=== PATIENT | female | born 1950 | race Caucasian/White ===

== ENCOUNTER 2021-09-30 01:25 | Day surgery (SDC) | payer BC, MEDICARE, SELFPAY ==
--- NOTE | 2021-09-20 11:02 | PC.NURSE ---
Report to the Outpatient Waiting Room, entrance under the green pavilion located off [facility], at time _0900 on date _09/30/21 . OR Time: __1100 . - You and your visitor will be asked a series of questions to screen for COVID 19 for your protection. - A mask is required within the hospital. Preoperative COVID Testing Requirements: No COVID Test needed if: (proof is required; if not received patient will have Rapid Test prior to entry) - Patient has received COVID Vaccine at least 14 days prior to procedure date or - Patient has positive COVID test result within last 90 days of surgery date. COVID Test needed if above criteria is not met If not COVID vaccinated a COVID test must be conducted within 72 hours of surgery and patient is asked to isolate self from time of testing until procedure. You will go to the [employer] Testing Site for your COVID testing. The [facility] is located at the corner of [address] from [facility]. You will only be called if COVID results are positive and your surgeon may reschedule your elective surgery date. Patients may have clear liquids (water, carbonated beverages, clear teas, apple juice) until 3 hours prior to surgery with a maximum of 20 ounces. - No food from midnight until time of surgery - Infants may have breast milk until 4 hours before surgery, formula 6 hours prior to surgery. - Children will be allowed to drink immediately following surgery. If applicable, please bring a bottle or sippy cup to assist with drinking. Juice, water, soda, and popsicles are readily available. For infants on formula, please bring formula the day of surgery. Pacifiers are allowed. Take the following medications with a SIP of water the morning of surgery: __NONE Medications to discontinue per physician ____MULTI VITAMIN 3 DAYS PRE OP Date to take last dose___09/26/21 Please no make-up, nail [place], hairspray, perfume, deodorant, or body powder the day of surgery. No jewelry (including any body piercings) or valuables the day of surgery, leave them at home. Please take a shower or bath the night before, or the morning of, surgery with an antibacterial soap. Wear comfortable, loose fitting clothing. Children are encouraged to wear pajamas. - Jewelry must be removed prior to entering the operating room. Rings and piercings that are not removed may be cut off. - The hospital will not accept responsibility for valuables. - Please leave all valuables, including medications, at home the day of surgery. If you are going home after surgery, a licensed wood pile driver operator must drive you home. - NO public transportation without another adult. - We recommend that an adult stay with you for 24 hours following discharge. - We also recommend that you do not drive, make important decision, drink alcoholic beverages, or take any drugs that were not prescribed by your health care provider for at least 24 hours after your discharge time. For Pediatric surgeries, we recommend two adults accompany the child home (only one inside the building at this time). One visitor will be allowed to accompany the patient into the hospital. Patients visitor will be instructed to remain with patient at all times or leave the building. We will allow the visitor to come back to the postoperative area when patient is ready. Follow any additional instructions given to you from your surgeon. Telephone instructions given to ___PATIENT and asked if any additional questions and then verbalized understanding. Patient advised to call surgeon office or pre surgery nurse liaison [phone] if any additional questions.
[2021-09-20 11:10] VITALS: BMI 32.3
--- NOTE | 2021-09-30 08:21 | WPDANESEPPF ---
Anes - Initial Pre Proc Eval Procedure: Operation Date: 09/30/21 10:00 Proposed Procedures p Hysteroscopy Dilation and Curettage - Yady Muhammad MD <Mandeep Alaniz MD - Last Filed: 10/01/21 15:25> Date/Time: 09/30/21 08:21 <Mandeep Alaniz MD - Last Filed: 10/01/21 15:25> Surgeon: Yady Muhammad MD <Mandeep Alaniz MD - Last Filed: 10/01/21 15:25> Pre Op Diagnosis: post menopausal bleeding <Mandeep Alaniz MD - Last Filed: 10/01/21 15:25> Patient Data Age: 71 Gender: F Height: 1.68 m Weight: 90.75 kg <Mandeep Alaniz MD - Last Filed: 10/01/21 15:25> Allergies Allergy/AdvReac Type Severity Reaction Status Date / Time No Known Allergies Allergy Unverified 09/30/21 08:37 <Mandeep Alaniz MD - Last Filed: 10/01/21 15:25> Home Medications Medication Instructions Recorded Confirmed Type multivitamin [Multi-Vitamin] 1 tablet PO DAILY 09/20/21 09/30/21 History <Mandeep Alaniz MD - Last Filed: 10/01/21 15:25> Patient hx anesthesia problems: none <Nicholas Nieves DO - Last Filed: 09/30/21 11:54> Family hx anesthesia problems: none <Nicholas Nieves DO - Last Filed: 09/30/21 11:54> Results Review: All pre-operative results and documents have been reviewed as part of the pre-operative evaluation. <Mandeep Alaniz MD - Last Filed: 10/01/21 15:25> PMFSH Past Medical History Medical History: Medical History (Updated 09/30/21 @ 08:22 by Mandeep Alaniz MD) Arthritis Cataract fragments in eye following surgery Insomnia Obesity <Mandeep Alaniz MD - Last Filed: 10/01/21 15:25> Surgical History Surgical History: Surgical History History of tubal ligation S/P laparoscopic sleeve gastrectomy <Mandeep Alaniz MD - Last Filed: 10/01/21 15:25> Family History Family History: Family History Other Cerebrovascular accident Diabetes mellitus Hypertension Thyroid disease <Mandeep Alaniz MD - Last Filed: 10/01/21 15:25> Social History Social History: Social History Smoking packs per day: 2 Smoking cigarettes per day: 40.0 Years smoked: 15 Smoking pack-years: 30.00 Smoking status: Former smoker Tobacco type: cigarettes Smoking end date: 06/15/91 Alcohol intake: current Drinks per week: 2 Alcohol use details: socially Substance use: never Substance use type: does not use Living arrangements: with family Gender identity (if verbalized by the patient): Female Spiritual care concerns: No <Mandeep Alaniz MD - Last Filed: 10/01/21 15:25> Anes - Eval Final PreProcedure Day of Procedure 09/30/21 08:21 <Mandeep Alaniz MD - Last Filed: 10/01/21 15:25> Patient weight: obese <Mandeep Alaniz MD - Last Filed: 10/01/21 15:25> Heart: regular rate and rhythm <Mandeep Alaniz MD - Last Filed: 10/01/21 15:25> Lungs: clear to auscultation and normal air movement <Mandeep Alaniz MD - Last Filed: 10/01/21 15:25> Airway: Mallampati scale class II <Mandeep Alanzi MD - Last Filed: 10/01/21 15:25> Neurological: alert and oriented <Mandeep Alaniz MD - Last Filed: 10/01/21 15:25> Last oral intake: >/= 8 hours <Mandeep Alaniz MD - Last Filed: 10/01/21 15:25> ASA classification: II <Mandeep Alaniz MD - Last Filed: 10/01/21 15:25> Emergent: no <Mandeep Alaniz MD - Last Filed: 10/01/21 15:25> Anesthetic plan: proceed <Mandeep Alaniz MD - Last Filed: 10/01/21 15:25> Anesthesia type and monitoring: general GIVS <Mandeep Alaniz MD - Last Filed: 10/01/21 15:25> Results Review: All pre-operative results and documents have been reviewed as part of the pre-operative evaluation. <Mandeep Oseguera
[2021-09-30 08:24] VITALS: BP 150/72; PULSE 59; RESP 20; TEMP 36.3; O2SAT 97
[2021-09-30] MEDS: LACTATED RINGERS 1,000 ML 30 ML IV CONT (08:45)
--- NOTE | 2021-09-30 09:46 | SUR.PREOP ---
0940-PT AND DAUGHTER AWARE SURGEON DELAYS SELF WITH PRIOR CASE ~ 1 1/2 HOURS. CALL LIGHT W/IN REACH AND NEEDS MET AT THIS TIME.
--- NOTE | 2021-09-30 10:45 | P.HP_ITS ---
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 She reports this was her 3rd episode of PMB since 57yo when she went through menopause-- first one was shortly after becoming menopausal, second one was after intercourse; but has not been sexually active in >1yr due to vaginal pain/dryness/irritation. She does report a h/o abnormal paps/ AUB-- reports she should have had a hysterectomy but didn't have insurance and couldn't have one. Her PCP examined her last month and did note vaginal bleeding; US and pap were collected. Pap is still pending? The US showed slightly thickened endometrium of 5.7mm with endometrial fluid. The bleeding lasted a few days and was red, associated with cramping. She desires to proceed with hysteroscopy, D&C. Chief Complaint: postmenopausal bleeding Review of Systems Review of Systems: All systems reviewed & are unremarkable except as noted in HPI and below (HPI) [facility] Past Medical History Medical History (Updated 09/30/21 @ 08:22 by Mandeep Alaniz MD) Arthritis Cataract fragments in eye following surgery Insomnia Obesity Surgical History Surgical History History of tubal ligation S/P laparoscopic sleeve gastrectomy Family History Family History Other Cerebrovascular accident Diabetes mellitus Hypertension Thyroid disease Social History Social History Smoking packs per day: 2 Smoking cigarettes per day: 40.0 Years smoked: 15 Smoking pack-years: 30.00 Smoking status: Former smoker Tobacco type: cigarettes Smoking end date: 06/15/91 Alcohol intake: current Drinks per week: 2 Alcohol use details: socially Substance use: never Substance use type: does not use Living arrangements: with family Gender identity (if verbalized by the patient): Female Spiritual care concerns: No Meds Home Medications and Allergies Home Medications Medication Instructions Recorded Confirmed Type multivitamin [Multi-Vitamin] 1 tablet PO DAILY 09/20/21 09/30/21 History Allergies Allergy/AdvReac Type Severity Reaction Status Date / Time No Known Allergies Allergy Unverified 09/30/21 08:37 Exam Const: General: cooperative, comfortable and no acute distress Resp: Effort & Inspection: normal respiratory effort Cardio: Rate: regular rate GI: GI Palp: No abdominal tenderness and Yes Soft to palpation : Other: deferred to OR Skin: General skin exam: normal color Neuro: General: patient oriented x3 Psych: Appearance: grossly normal Affect: normal affect Attitude: cooperative Assessment and Plan Assessment and plan (1) Postmenopausal bleeding: Code(s): N95.0 - Postmenopausal bleeding Status: Acute Additional Plan - She has had multiple episodes of PMB + slightly thickened lining noted on US - Proceed with hysteroscopy with dilation and curettage - risks and benefits explained in detail
--- NOTE | 2021-09-30 10:45 | WPDHPUPDATE1 ---
History and Physical Update Update Date/Time: 09/30/21 10:45 History and Physical has been reviewed, including an updated exam of the patient. There are NO changes in the patient's condition. Risks, benefits, and alternatives have been discussed and questions answered. Patient agrees to proceed with procedure.
[2021-09-30 13:05] VITALS: BP 111/44; PULSE 57; RESP 14; TEMP 36.2; O2SAT 98
--- NOTE | 2021-09-30 13:18 | W.PM.PROC2 ---
Procedure Note - Detailed Date of Procedure 09/30/21 Pre-op Diagnosis post menopausal bleeding Post-op Diagnosis Same Procedure Performed Hysteroscopy, dilation and curettage, with polypectomy Surgeon Yady Muhammad MD Anesthesia General Findings Uterus 6cm; normal cervix, normal bilateral tubal ostia visualized; endometrial polyp arising from posterior wall removed. Good hemostasis at end of case. Description of Procedure Rosio was taken operating room where she was placed under general anesthesia without complications. She was then prepped and draped in usual sterile fashion the dorsal lithotomy position with her legs in low Eliud stirrups. A time-out was performed and no preoperative antibiotics were indicated. A bivalve speculum was placed within the vagina with the cervix is identified. The anterior lip the cervix was grasped with single-tooth tenaculum. The uterus was sounded with the above findings. The cervix was then serially dilated to allow for the hysteroscope. The hysteroscope was advanced into the uterine cavity with the above findings. The hysteroscope was removed and a curettage was performed with a decent amount of tissue removed. The hysteroscope was once again advanced in the uterus to verify that the polyp had been removed in full, but it was identified still attached to the posterior uterine wall. Using alligator hysteroscopic clamps the polyp was partially removed. It is polyp forceps were then placed within the uterine cavity and the polyp was palpated and removed in whole. Another gentle curettage was performed and a good uterine cry was then noted. Good hemostasis noted. All instruments were removed from the vagina. Sponge, lap, instrument counts were correct at the end of the procedure. Patient was awoken from general anesthesia and taken recovery in a stable condition with plans of same-day discharge home. Estimated Blood Loss 5 Pathology Yes Complications No immediate complications Condition Stable Disposition Same day
[2021-09-30 13:35] VITALS: BP 118/45; PULSE 53; O2SAT 97
[2021-09-30 14:00] VITALS: BP 114/61; PULSE 60
== END 2021-09-30 14:10 | disposition home or self-care (01) ==
PROVIDERS: PCP Family Medicine; Visit Provider Obstetrics & Gynecology
PROC: 0U5B8ZZ Destruction of Endometrium, Via Natural or Artificial Opening Endoscopic (ICD-10-PCS; CPT 58563; principal; 2021-09-30 10:00)
DX: N95.0 Postmenopausal bleeding (principal); N84.0 Polyp of corpus uteri; Z87.891 Personal history of nicotine dependence
CPT/HCPCS: 58558; 88305; A9270; J1100; J2405; J2704; J3010; J7120

== ENCOUNTER 2023-10-29 10:41 | Outpatient (CLI) | payer MEDICARE, SELFPAY ==
[2023-10-29 19:03] LABS: Hematocrit 47.9 % (37.0-47.0); Hemoglobin 14.8 g/dL (12.0-15.0); Mean Corpuscular HGB Conc 30.9 g/dl (32-36); Mean Corpuscular Volume 90.7 fl (80-100); Mean Platelet Volume 11.1 fl (7.4-10.4); Platelet Count Result 353 k/mm3 (150-375); Red Blood Count 5.28 M/mm3 (4.2-5.4); Red Cell Distribution Width 14.1 % (11.5-14.5)
[2023-10-29 19:18] LABS: Alanine Aminotransferase 12 U/L (6-35); Albumin Level 4.4 g/dL (3.5-5.1); Alkaline Phosphatase 118 U/L (38-126); Anion Gap 8 mmol/L (4-12); Aspartate Amino Transferase 64 U/L (14-36); Bilirubin,Total 0.7 mg/dL (0.2-1.3); Blood Urea Nitrogen 25 mg/dL (7-17); Calcium 9.2 mg/dL (8.4-10.2); Carbon Dioxide 27 mmol/L (22-30); Chloride 106 mmol/L (98-107); Cholesterol 195 mg/dL (0-200); Estimated Glomerular Filt Rate > 60; Glucose 86 mg/dL (65-110); HDL Direct 56 mg/dL; Potassium 4.4 mmol/L (3.4-5.0); Sodium 141 mmol/L (137-145); Triglycerides 148 mg/dL (<150)
[2023-10-29 19:30] LABS: LDL Cholesterol Direct 112 mg/dL
[2023-10-29 20:21] LABS: Folic Acid 19.1 ng/mL (2.76->20)
[2023-10-29 21:46] LABS: Iron 99 ug/dL (37-170)
[2023-10-29 21:55] LABS: Percent Iron Saturation 26 % (20-50)
[2023-10-29 22:08] LABS: Vitamin D 25 Hydroxy 22.4 ng/mL
[2023-11-11 13:11] LABS: Vitamin B1 131
== END 2023-10-29 10:42 | disposition home or self-care (01) ==
PROVIDERS: PCP Nurse Practitioner Adult Health; Visit Provider Nurse Practitioner Adult Health
DX: E78.5 Hyperlipidemia, unspecified (principal); D64.9 Anemia, unspecified; Z79.899 Other long term (current) drug therapy; Z98.84 Bariatric surgery status
CPT/HCPCS: 36415; 80053; 80061; 82306; 82607; 82728; 82746; 83540; 83550; 84425; 84443; 85027

== ENCOUNTER 2024-05-03 08:30 | Outpatient (CLI) | payer MEDICARE, SELFPAY ==
--- NOTE | ~2024-05-03 | XR_ITS ---
XR shoulder LT min 2V Ordering provider: Ani Raymond APRN History: . M25.519 - Pain in unspecified shoulder . Comparison: None. FINDINGS: BONES: No acute fracture or dislocation. JOINT SPACES: The acromioclavicular joint is normal. The glenohumeral joint is normal. SOFT TISSUES: Normal. IMPRESSION: No acute osseous abnormality left shoulder. Reviewed, dictated and finalized at location A. ON BROACHER
--- NOTE | ~2024-05-03 | XR_ITS ---
XR shoulder RT min 2V Ordering provider: Ani Raymond APRN History: . M25.519 - Pain in unspecified shoulder . Comparison: None. FINDINGS: BONES: No acute fracture or dislocation. JOINT SPACES: The acromioclavicular joint shows mild osteoarthritic changes.. The glenohumeral joint is normal. SOFT TISSUES: Normal. IMPRESSION: No acute osseous abnormality right shoulder. Reviewed, dictated and finalized at location A. CTOR SALES TRAINING
--- NOTE | ~2024-05-03 | XR_ITS ---
XR_CERV2-3V_CR Ordering provider: Ani Raymond APRN History: . M54.2 - Cervicalgia . Comparison: None. FINDINGS: VERTEBRAL BODIES: Normal height and alignment. No visible fracture or subluxation. The dens is intact . Degenerative changes of the spine. DISK SPACES: Narrowing of the disc C5-C6. Uncovertebral joint osteoarthritic changes at the level of C5-C6. PARASPINOUS SOFT TISSUES: No prevertebral soft tissue swelling. IMPRESSION: No acute osseous abnormality cervical spine. Degenerative disc disease at the level of C5-C6 with uncovertebral joint osteoarthritic changes. Reviewed, dictated and finalized at location A. NAGE ENGINEER IMPRESSION: No acute osseous abnormality cervical spine. Degenerative disc disease at the level of C5-C6 with uncovertebral joint osteoa rthritic changes.
[2024-05-03 19:26] LABS: Alanine Aminotransferase 11 U/L (6-35); Albumin Level 3.9 g/dL (3.5-5.1); Alkaline Phosphatase 101 U/L (38-126); Anion Gap 6 mmol/L (4-12); Aspartate Amino Transferase 56 U/L (14-36); Bilirubin,Total 0.8 mg/dL (0.2-1.3); Blood Urea Nitrogen 22 mg/dL (7-17); Calcium 9.1 mg/dL (8.4-10.2); Carbon Dioxide 27 mmol/L (22-30); Chloride 107 mmol/L (98-107); Cholesterol 166 mg/dL (0-200); Estimated Glomerular Filt Rate > 60; Glucose 84 mg/dL (65-110); HDL Direct 51 mg/dL; Potassium 4.3 mmol/L (3.4-5.0); Sodium 140 mmol/L (137-145); Triglycerides 155 mg/dL (<150)
[2024-05-03 19:37] LABS: LDL Cholesterol Direct 80 mg/dL
== END 2024-05-03 08:31 | disposition home or self-care (01) ==
PROVIDERS: PCP Nurse Practitioner Adult Health; Visit Provider Nurse Practitioner Adult Health
DX: M50.322 Other cervical disc degeneration at C5-C6 level (principal); M25.511 Pain in right shoulder; M25.512 Pain in left shoulder; E78.5 Hyperlipidemia, unspecified; E55.9 Vitamin D deficiency, unspecified
CPT/HCPCS: 36415; 72040; 73030; 80053; 80061; 82306

== ENCOUNTER 2024-08-31 09:28 | Outpatient (CLI) | payer MEDICARE, SELFPAY ==
--- OUTSIDE RECORDS SUMMARY | 2024-08-31 10:33 | XMS_ITS | Clinical Summary ---
Author Organization [facility] Address [address] [place] [address] Care Team Providers Care Diversity Manager Name Role Phone Kelly Gonzales MD Primary Care Provider [phone] Allergies No known active allergies Medications calcium carb-vit D3-magnesium 250-200-125 mg-unit-mg capsule Take by mouth Active pediatric multivitamin no.209 (CHILDREN'S MULTIVITAMIN GUMMY ORAL) Take by mouth Active atorvastatin (LIPITOR) 10 mg tablet Take 1 tablet (10 mg total) by mouth daily Active naproxen-pseudoep hedrine 220-120 mg tablet extended release 12 hr Take 2 tablets by mouth daily Active Active Problems Problem Noted Date Diagnosed Date Personal history of colonic polyps 11/24/2022 Encounter for screening colonoscopy 11/24/2022 Positive colorectal cancer screening using Colog uard test 09/08/2022 Overview (09/08/2022): Added automatically from request for surgery [id number] Chest discomfort 09/02/2022 Dizziness 09/02/2022 Palpitations 09/02/2022 Surgical History Surgery Date Site/Laterality Comments COLONOSCOPY 20 years ago COLONOSCOPY 12/22/2022 TUBAL LIGATION GASTRIC FUNDOPLICATION TONSILLECTOMY Medical History Medical History Date Comments Colon polyp Hyperlipidemia Social History Tobacco Use Types Packs/Day Years Used Date Smoking Tobacco: Never Alcohol Use Standard Drinks/Week Comments No 0 (1 standard drink = 0.6 oz pur e alcohol) AUDIT-C Answer Date Recorded Q1: How often do you have a drink containing alc ohol? 2-4 times a month 12/19/2022 Q2: How many drinks containi ng alcohol do you have on a typical day when you are drinking? 1 or 2 12/19/2022 Q3: How often do you have si x or more drinks on one occasion? 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 Gender Identity Not on file Sexual Orientation Not on file Obstetrics History Para Term AB IAB SAB Ectopic Multiple Livin g Live Births 3 Date Outcome GA Total Labor Labor/2nd/3rd Weight Sex Type Anes PTL Suzanne A1 A5 Name Clin Last Filed Vital Signs Vital Sign Reading Time Taken Comments Blood Pressure 154/66 12/22/2022 1:55 PM CDT Pulse 53 12/22/2022 1:55 PM CDT Temperature 36.1 C (97 F) 12/22/2022 1:55 PM CDT Respiratory Rate 18 12/22/2022 1:55 PM CDT Oxygen Saturation 99% 12/22/2022 1:55 PM CDT Inhaled Oxygen Concentration - - Weight 89.8 kg (198 lb) 12/22/2022 10:46 AM CDT Height 167.6 cm (5' 6 ) 12/22/2022 10:46 AM CDT Body Mass Index 31.96 12/22/2022 10:46 AM CDT Plan of Treatment Health Maintenance Due Date Last Done Comments Depression Screening 1950 Hepatitis C Screening 1950 DTaP/Tdap/Td Vaccine (1 - Tdap) 1961 Hepatitis B Screening 1968 Zoster Vaccine (1 of 2) 2000 Well Visit 65+ 2015 Pneumococcal vaccine 65+ (2 of 2 - PPSV23) 07/25/2017 07/25/2016 Osteoporosis Screening-Bone Density Scan 01/26/2019 01/26/2017 Breast Cancer Screening-Mammogram 01/27/2019 01/27/2018, 01/26/2017, 02/02/2015 Fall Risk Assessment 12/23/2023 12/22/2022 Covid-19 Vaccine (3 - 2023-2 5 season) 2024 06/22/2021, 09/20/2020 Influenza Vaccine (#1) 2024 9, 06/04/2017, 07/25/2016 Colon Cancer Screening-Colonoscopy 12/22/20322022 Colon Cancer Screening-CT Colonography Discontinued 12/22/2022 Colon Cancer Screening-DNA Stool Discontinued 12/23/19 Colon Cancer Screening-FIT Discontinued 12/22/2022, Colon Cancer Screening-Sigmoidoscopy Discontinued 12/13 Procedures Procedure Name Priority Date/Time Associated Diagnosis Comments COLONOSCOPY 12/22/2022 10:31 AM CDT SCREENING MAMMOGRAM BILATERAL W JOSE Schedule Routine, Read Routine (OP Routine) 01/27/2018 2:51 PM CDT Encounter for screening mammogram for malignant neoplasm of breast DEXA AXIAL SKELETON BONE DENSITY 1 OR MORE SITES Routine 01/26/2017 6:17 PM CDT from Last 3 Months or Most Recently Relevant to Health Maintenance Results * COLONOSCOPY (12/22/2022 10:31 AM CDT) Anatomical Region Laterality Modality Other Narrative Procedure Note Mark Anthony Motta MD - 12/22/2022 10:31 AM CDT [facility] Patient Name: Rosio Miller Procedure Date: 12/22/2022 10:31 AM Date of : 1950 Admit Type: Outpatient Age: 72 Gender: Female Attending MD: Mark Anthony Motta M.D. Room: [facility] ENDOSCOPY ROOM 3 Note Status: Finalized Patient Profile: This is a 72 year old female history ofhyperlipidemia here for colonoscopy after positive Cologuard. Colonoscopy 10 years ago with polyps but no record here for review. No family history of coloncancer. Procedure: Colonoscopy Indications: Positive Cologuard test Referring MD: Kelly Gonzales M.D. Providers: Mark Anthony Motta M.D. Impression: - Perianal skin tags found on perianal exam. - Internal hemorrhoids. - The examination was otherwise normal. - No specimens collected. Recommendation: - Patient has a contact number available for emergencies. The signs and symptoms of potential delayed complications were discussed with thepatient. Return to normal activities tomorrow. Written discharge instructions were provided to thepatient. - Discharge patient to home (with escort). - Resume previous diet. - Continue present medications. - Repeat colonoscopy in 5 years for screeningpurposes. - Return to primary care physician as previously scheduled. Medicines: Monitored Anesthesia Care Complications: No immediate complications. Estimated Blood Loss: Estimated blood loss: none. Procedure: Pre-Anesthesia Assessment: - Prior to the procedure, a History and Physicalwas performed, and patient medications and allergieswere reviewed. The patient is competent. The risks and benefits of the procedure and the sedation optionsand risks were discussed with the patient. Allquestions were answered and informed consent was obtained. Patient identification and proposed procedure were verified by the physician, the babbitt spinner and the pc technician in the endoscopy suite. Mental Status Examination: normal. Prophylactic Antibiotics: The patient does not require prophylactic antibiotics. Prior Anticoagulants: The patient has taken no anticoagulant or antiplatelet agents. ASA Grade Assessment: II - A patient with mild systemicdisease. After reviewing the risks and benefits, the patient was deemed in satisfactory condition to undergo the procedure. The anesthesia plan was to use monitored anesthesia care (MAC). Immediately prior to administration of medications, the patient was re-assessed for adequacy to receive sedatives. The heart rate, respiratory rate, oxygen saturations, blood pressure, adequacy of pulmonary ventilation,and response to care were monitored throughout the procedure. The physical status of the patient was re-assessed after the procedure. The benefits, risks and alternatives of theprocedure and sedation were discussed and informed consentwas obtained. All questions were answered. Please referto the signed informed consent document in the medical record. The bowel preparation used was Miralax and bisacodyl tablets via split dose instruction. The scope was passed under direct vision. TheColonoscope [id number] was introduced through the anus and advanced to the the cecum, identified by appendiceal orifice and ileocecal valve. The colonoscopy was performed without difficulty. The patient tolerated the procedure well. The qualityof the bowel preparation was good. Bowel prep was administered using a split dose. Findings: Skin tags were found on perianal exam. Internal hemorrhoids were found during retroflexion. The exam was otherwise without abnormality. Mark Anthony Motta M.D. 12/22/2022 1:13:23 PM Number of Addenda: 0 Note Initiated On: 12/22/2022 10:31 AM Procedure Code(s): --- Professional --- 61619, Colonoscopy, flexible; diagnostic, including collection of specimen(s) by brushing or washing, when performed (separateprocedure) --- Technical --- 52702, Colonoscopy, flexible; diagnostic, including collection of specimen(s) by brushing or washing, when performed (separateprocedure) Diagnosis Code(s): --- Professional --- K64.8, Other hemorrhoids K64.4, Residual hemorrhoidal skin tags --- Technical --- K64.8, Other hemorrhoids K64.4, Residual hemorrhoidal skin tags CPT copyright 2020 [employer]. All rights reserved. The codes documented in this report are preliminary and upon marine electronics technician reviewmay be revised to meet current compliance requirements. Recognized by the [employer] for promoting quality in endoscopy us Mark Anthony Motta MD ENDOSCOPY PROCEDURES Final Resul t * Screening Mammogram Bilateral W Jose (01/27/2018 2:51 PM CDT) Anatomical Region Laterality Modality Breast Bilateral Mammography 01/27/2018 2:54 PM CDT Impressions 01/27/2018 3:05 PM CDT 1. BENIGN FINDINGS. 2. ANNUAL FOLLOW-UP RECOMMENDED. BI-RADS 2 Electronically signed by: Castillo Lee M.D Narrative 01/27/2018 3:05 PM CDT SCREENING MAMMOGRAM BILATERAL W JOSE HISTORY: Encounter for screening mammogram for malignant neoplasm of breast. TECHNIQUE: 2 views of each breast were obtained with bilateral breast tomosynthesis. COMPARISON: 01/26/2017. FINDINGS: Scattered parenchymal densities bilaterally. No suspicious mass or calcification is seen to suggest mammographic evidence of malignancy. Benign calcifications are present. Digital technology was employed plus computer aided detection software (R2) was utilized in interpretation of these images. This facility utilizes a reminder system to notify patient's of yearly mammograms. Fidel Portillo MD IMG MAMMO PROCEDURES Final Re sult * Dexa Axial Skeleton Bone Density 1 or 2 Site (01/26/2017 6:17 PM CDT) Anatomical Region Laterality Modality Body N/A Radiographic Kassandra ging 01/26/2017 6:17 PM CDT Narrative 01/26/2017 6:17 PM CDT DEXA Bone Density Axial Acc#: [id number] DATE OF EXAM: Jan 26 2017 EXAM: DEXA Bone Density Axial HISTORY: Osteoporosis screening. Menopause age 40. FINDINGS: The mean bone mineral content of the lumbar spine is 72.27 g/cm2. The T-score is 1.1 consistent with normal bone mineral density. The mean bone mineral content of the left hip is 35.68 g/cm2. The neck T-score is 0.3. The total T-score is 1.2. This is consistent with normal bone mineral density. IMPRESSION: 1. Lumbar spine T score 1.1; normal. 2. Left hip T score 0.3 neck and 1.2 total; normal. X09 COMMENT: W.H.O. defines the T-score of between -1 and -2.5 as osteopenia, the level at which there may be an increased risk of developing osteoporosis and fractures in the future. Osteoporosis is defined as T-score lower than -2.5 (significantly increased risk of fracture due to osteoporosis). T-score is a comparison to peak bone mineral density of young adult reference population. Z-score is a comparison to bone mineral density of sex and age group population. Electronically signed by: Armand Hayes Jr., M.D. Interpreting Physician: DR ARMAND HAYES M.D. Read on: Jan 26 2017 1:52P Transcribed by: PSC On: Jan 26 2017 1:50P Approved Electronically by: NANCI Bhatia, DR PANCHAL on: Jan 26 2017 1:50P Ordering DR: FIDEL PORTILLO Attending DR: FIDEL PORTILLO Attending: FIDEL PORTILLO Requesting: FIDEL PORTILLO Requesting Attending Attending ID: [id number] Requesting ID: [id number] Report To 1 ID: [id number] Report To 1 Name: FIDEL PORTILLO Report To 1 FAX: [phone] NextGen Order #: Procedure Note Miscellaneous, Not In File / Provider, MD Benjamin - 01/26/2017 DEXA Bone Density Axial Acc#: [id number] DATE OF EXAM: Jan 26 2017 EXAM: DEXA Bone Density Axial HISTORY: Osteoporosis screening. Menopause age 40. FINDINGS: The mean bone mineral content of the lumbar spine is 72.27 g/cm2. The T-score is 1.1 consistent with normal bone mineral density. The mean bone mineral content of the left hip is 35.68 g/cm2. The neck T-score is 0.3. The total T-score is 1.2. This is consistent with normal bone mineral density. IMPRESSION: 1. Lumbar spine T score 1.1; normal. 2. Left hip T score 0.3 neck and 1.2 total; normal. X09 COMMENT: W.H.O. defines the T-score of between -1 and -2.5 as osteopenia, the level at which there may be an increased risk of developing osteoporosis and fractures in the future. Osteoporosis is defined as T-score lower than -2.5 (significantly increased risk of fracture due to osteoporosis). T-score is a comparison to peak bone mineral density of young adult reference population. Z-score is a comparison to bone mineral density of sex and age group population. Electronically signed by: Armand Hayes Jr., M.D. Interpreting Physician: DR ARMAND HAYES M.D. Read on: Jan 26 2017 1:52P Transcribed by: PSC On: Jan 26 2017 1:50P Approved Electronically by: NANCI Bhatia, DR PANCHAL on: Jan 26 2017 1:50P Ordering DR: FIDEL PORTILLO Attending DR: FIDEL PORTILLO Attending: FIDEL PORTILLO Requesting: FIDEL PORTILLO Requesting Attending Attending ID: [id number] Requesting ID: [id number] Report To 1 ID: [id number] Report To 1 Name: FIDLE PORTILLO Report To 1 FAX: [phone] NextGen Order #: Fidel Portillo MD IMG DXA PROCEDURES Final Resu lt from Last 3 Months or Most Recently Relevant to Health Maintenance [place] [address] [facility] MEDICARE [facility] Advance Directives For more information, please contact: [phone] * Full Code (Latest Code Status on File) Date Activated Date Inactivated Comments 12/22/2022 10:40 AM 12/22/2022 6:33 PM * Full Code Date Activated Date Inactivated Comments 12/22/2022 10:40 AM 12/22/2022 10:40 AM Care Teams Diversity Manager Relationship Specialty Start Date End Date Kelly Gonzales MD [facility] [address] PCP - General Family Medicine 09/08/22
--- OUTSIDE RECORDS SUMMARY | 2024-08-31 10:33 | XMS_ITS | Clinical Summary ---
Author Organization [facility] Address [address] [address] Phone Care Team Providers Care Dump Grounds Checker Name Role Phone Fidel Portillo MD Primary Care Provider [phone] Medications polyethylene glycol (MIRALAX) Powder Use entire 255g bottle with 64oz of clear liquid as directed for colonoscopy prep. 255 g 0 7 Active Social History Tobacco Use Types Packs/Day Years Used Date Smoking Tobacco: Never Assessed Comments Unknown Sex and Gender Information Value Date Recorded Sex Assigned at Not on file Legal Sex Female 9:17 PM CDT Gender Identity Not on file Sexual Orientation Not on file Plan of Treatment Health Maintenance Due Date Last Done Comments DEXA Bone Density 1950 Hepatitis C Virus (HCV) Screening 1950 TdaP Immunization 1950 Colonoscopy 1995 Colorectal Cancer Screening 1995 Cologuard 2000 Immunochemical Fecal Occult Blood 2000 Mammogram 2000 Pneumococcal Immunization (5 0+ years) (1 of 1 - PCV) 2000 Zoster Immunization (1 of 2) 2000 Influenza Immunization (#1) 2024 SARS-COV-2 Immunization ( - 2023- season) 2024 Respiratory Syncytial Virus (RSV) Immunization (Adult) (1 - 1-dose 75+ series) 2025 Hepatitis B Immunization Aged Out No longer eligible based on patient's age to complete this topic Meningococcal Immunization (ACWY) Aged Out No longer eligible based on patient's age to complete this topic Rotavirus Immunization Aged Out No lo nger eligible based on patient's age to complete this topic Insurance [facility] MEDICARE Care Teams Dump Grounds Checker Relationship Specialty Start Date End Date Fidel Portillo MD [address] [place] [address] [address] [place] [address] PCP - General Family Medicine 07/02/16
--- OUTSIDE RECORDS SUMMARY | 2024-08-31 10:33 | XMS_ITS | Continuity of Care Document ---
Author Organization [employer] [facility] Address [address] [facility] utimallory Musa [address] [place] [address] Phone Care Team Providers Care Doper Name Role Phone Sae Quinn MD Unavailable [...] Diagnoses Date Provider Providers Copied on Encounter [facility], [address] [place] [address] [address], [place], [place], [id number], tel:[phone] SEC [place] Professional 1 month s/p YAG PC (chief complaint) Encounter for examination following surgery May-0 9 Kai Quevedo. [address], [place], [place], [address], [place]. tel:[phone] Referring Provider: Kisha Prado OD, [facility] [address] [facility], [place], [address]. tel:[phone] [facility], [address] [place] [address] [address], [place], [place], [address], tel:[phone] SEC [place] Professional po Yag PC OD / Yag PC OS (chief complaint) Encounter for examination following surgeryOther secondary cataract, left eye Apr-0 9 Kai Quevedo. [address], [place], [place], [address], [place]. tel:[phone] Referring Provider: Kisha Prado OD, [facility] [address] [facility], [place], [address]. tel:[phone] [facility], [address] [place] [address] [address], [place], [place], [address], [place] tel:[phone] SEC [place] Professional Yag PC Eval (chief complaint) Presence of intraocular lensOther secondary cataract, right eyeOther secondary cataract, left eyePinguecul a, left eyeDermatoch alasis of both upper eyelids Sep-2 0 9 Kai Quevedo. [address], [place], [place], [address], [place]. tel:[phone] Referring Provider: Kisha Prado OD, [facility] [address] [facility], [place], [address]. tel:[phone] [facility], [address], [place], [place], [address], [place] [phone] SEC Alejandro MCCALL Professional No Information 9 Kai Quevedo. [address] [facility] [place], [address], [place]. tel:[phone] Office/outpa tient Visit, Est [facility], [address], [place], [place], [address], [place] [phone] SEC Alejandro MCC[place] Professional Complete Exam (chief complaint) Presence of intraocular lens 8 Cleary Linda. [address] [place], [address], [place]. tel:[phone] Referring Provider: Kisha Prado OD, [address], [address]. tel:[phone] [facility], [address], [place], [place], [address], [place] tel:[phone] SEC Alejandro MCC[place] Professional 4 wk PC IOL po (chief complaint) Encounter for examination following surgery Apr-2 0-201 7 Cleary Linda. [address] [place], [address], [place]. tel:[phone] Referring Provider: Kisha Prado OD, [address], [address]. tel:[phone] [facility], [address], [place], [place], [address], [place] tel:[phone] SEC Alejandro MCCALL Professional 1 Wk PCIOL Post Op (chief complaint) Encounter for examination following surgery 0 8-201 7 Leah OD Mackenzie. [address] [facility] [place], [address], [place]. tel:[phone] Referring Provider: Kisha Prado OD, [address], [place], [address]. tel:[phone] [facility], [address], [place], [place], [address], [place] tel:[phone] SEC [place] Professional 1 day PO (chief complaint) Encounter for examination following surgery 0 7 Cleary Linda. [address] [place], [address], [place]. tel:[phone] Referring Provider: Kisha OD, [address], [address]. tel:[phone] [facility], [address], [place], [place], [address], [place] tel:[phone] [facility] No Information 3 7 Cleary Linda. [address] [place], [address], [place]. tel:[phone] Referring Provider: Kisha Prado OD, [address], [place], [address]. tel:[phone] [facility], [address], [place], [place], [address], [place] tel:[phone] SEC Mesfin Remy No Information 3 7 Cleary Linda. [address] [place], [address], [place]. tel:[phone] Referring Provider: Kisha OD, [address], [address]. tel:[phone] [facility], [address], [place], [place], [address], [place] tel:[phone] SEC [place] Professional 3 wk CE PO (chief complaint) No Information Mar-2 7 Cleary Linda. [address] [place], [place], [facility], . tel:[phone] Referring Provider: Kisha Prado OD, [facility] [address], [address]. tel:[phone] [facility], [address], [place], [place], [address], tel:[phone] SEC [place] Professional 1 Wk PCIOL F/U (chief complaint) No Information Oct-1 1-201 7 Cleary Linda. [address] [place], [place], [facility], . tel:[phone] Referring Provider: Kisha Prado OD, [address], [address]. tel:[phone] [facility], [address], [place], [place], [address], [place] tel:[phone] SEC [place] Professional 1 Day PCIOL PO (chief complaint) No Information Oct-0 4-201 7 Cleary Linda. [address] [place], [place], [facility], [place]. tel:[phone] Referring Provider: Kisha Prado OD, [address], [place], [address]. tel:[phone] [facility], [address], [place], [place], [address], [place] tel:[phone] [facility] No Information Oct-0 3-201 7 Cleary Linda. [address] [place], [place], [facility], [place]. tel:[phone] Referring Provider: Kisha Prado OD, [facility] [address] [place] [address], [address]. tel:[phone] [facility], [address] [facility] [address], [place], [place], [address], tel:[phone] SEC [place] Remy No Information Cleary Linda. [address] [place], [address], . tel:[phone] Referring Provider: Kisha Prado OD, [address], [address]. tel:[phone] [facility], [address] [facility] [address], [place], [place], [address], tel:[phone] SEC Alejandro MCCALL Professional Cataract evaluation (chief complaint) No Information Cleary Linda. [address] [place], [address], . tel:[phone] Referring Provider: Kisha Prado OD, [address], [address]. tel:[phone] Family History Family Member Type Diagnosis Age At Onset Maternal grandmother Problem (finding) glaucoma Payers Payer name Insurance type Covered democrat ID Authoriza tion(s) No Information Social History [...] Additional Infor quoc Impression/Plan Impression/Plan Impression/Plan Impression/Plan Impression/Plan - PO M 1 s/p CE/PCIOL OS. Doing well. Continue post op drops as instructed. RTC 6 mths for CEE. Recommend OTC readers for near. Follow up - Return i n 6 months with Linda Cleary M.D. for Complete Exam. RTC as scheduled, sooner if any problems [...] for examination following surgery Impression/Plan - PO D 1 s/p CE/PCIOL OS- IOL in good position- Doing well- IOP well controlled- Post op med instructions reviewed with pt, and post op instructions discussed- Discussed warning signs and symptoms and need for immediate exam should these occur. Pt understands shield use, return to clinic for post op exam as scheduled. Follow up - as scheduled Proceed with CE OS Related to En [...] with problems. Follow up - as scheduled Impression/Plan - [...] surgery, will consider treatment in the future. Follow up - as scheduled Impression/Plan - Ca taract presence and progression [...]
--- OUTSIDE RECORDS SUMMARY | 2024-08-31 10:33 | XMS_ITS | Referral Summary ---
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 Room: [facility]COPY ROOM 3 Note Status: Finalized Patient [...] procedure were verified by the physician, the building drafter and the diagnostic technician in the endoscopy suite. Mental Status [...] scope was passed under direct vision. TheColonoscope [id number] was introduced through the anus and advanced [...] 10:31 AM Procedure Code(s): --- Professional --- 19214, Colonoscopy, flexible; diagnostic, including collection of specimen(s) by brushing or washing, when performed (separateprocedure) --- Technical --- 90181, Colonoscopy, flexible; diagnostic, including collection of specimen(s) by brushing or washing, when performed (separateprocedure) Diagnosis Code(s): --- Professional --- K64.8, Other hemorrhoids K64.4, Residual hemorrhoidal skin tags --- Technical --- K64.8, Other hemorrhoids K64.4, Residual hemorrhoidal skin tags CPT copyright 2020 [employer]. All rights reserved. The codes documented in this report are preliminary and upon hobbing press operator reviewmay be revised to meet current compliance requirements. Recognized by the [employer] for promoting quality in endoscopy Mark Anthony Motta MD ENDOSCOPY PROCEDURES Final [...] PM CDT DEXA Bone Density Axial Acc#: [id number] DATE OF EXAM: Jan 26 2017 EXAM: [...] Requesting: FIDEL PORTILLO Requesting Attending Attending ID: [id number] Requesting ID: [id number] Report To 1 ID: [id number] Report To 1 Name: FIDEL PORTILLO Report To 1 FAX: [phone] NextGen Order #: Procedure Note Miscellaneous, Not In File / Provider, MD Benjamin - 01/26/2017 DEXA Bone Density Axial Acc#: [id number] DATE OF EXAM: Jan 26 2017 EXAM: [...] on: Jan 26 2017 1:52P Transcribed by: KENDAL On: Jan 26 2017 1:50P Approved Electronically by: NANCI Bhatia, DR PANCHAL on: Jan 26 2017 1:50P Ordering DR: FIDEL PORTILLO Attending DR: FIDEL PORTILLO Attending: FIDEL PORTILLO Requesting: FIDEL PORTILLO Requesting Attending Attending ID: [id number] Requesting ID: [id number] Report To 1 ID: [id number] Report To 1 Name: FIDEL PORTILLO Report To 1 FAX: [phone] NextGen Order #: Fidel Portillo MD IMG DXA PROCEDURES Final Resu lt from Last 3 Months or Most Recently Relevant to Health Maintenance Insurance MEDICARE [employer] [place] [employer] [place] Advance Directives For more information, please contact: [phone] * Full Code (Latest Code Status on File) Date Activated Date Inactivated Comments 12/22/2022 10:40 AM 12/22/2022 6:33 PM * Full Code Date Activated Date Inactivated Comments 12/22/2022 10:40 AM 12/22/2022 10:40 AM Care Teams Manager Summer Relationship Specialty Start Date End Date Kelly Gonzales MD [facility] [place] [address] PCP - General Family Medicine 09/08/22
[2024-08-31 19:19] LABS: Hematocrit 47.6 % (37.0-47.0); Hemoglobin 14.4 g/dL (12.0-15.0); Mean Corpuscular HGB Conc 30.3 g/dl (32-36); Mean Corpuscular Hemoglobin 26.8 pg (26-34); Mean Corpuscular Volume 88.5 fl (80-100); Mean Platelet Volume 10.3 fl (7.4-10.4); Platelet Count Result 371 k/mm3 (150-375); Red Blood Count 5.38 M/mm3 (4.2-5.4); Red Cell Distribution Width 14.7 % (11.5-14.5); White Blood Count 8.1 K/mm3 (4.5-10.0)
[2024-08-31 20:01] LABS: Alanine Aminotransferase 13 U/L (6-35); Albumin Level 4.1 g/dL (3.5-5.1); Alkaline Phosphatase 105 U/L (38-126); Anion Gap 7 mmol/L (4-12); Aspartate Amino Transferase 51 U/L (14-36); Bilirubin,Total 0.6 mg/dL (0.2-1.3); Blood Urea Nitrogen 25 mg/dL (7-17); Calcium 8.9 mg/dL (8.4-10.2); Carbon Dioxide 28 mmol/L (22-30); Chloride 104 mmol/L (98-107); Cholesterol 230 mg/dL (0-200); Estimated Glomerular Filt Rate > 60; Glucose 79 mg/dL (65-110); HDL Direct 52 mg/dL; Potassium 4.5 mmol/L (3.4-5.0); Sodium 139 mmol/L (137-145); Triglycerides 148 mg/dL (<150)
[2024-08-31 20:12] LABS: LDL Cholesterol Direct 130 mg/dL
[2024-09-01 00:35] LABS: Vitamin D 25 Hydroxy 58.2 ng/mL
== END 2024-08-31 09:29 | disposition home or self-care (01) ==
LOC: ANHBWCLAB 09:29
PROVIDERS: PCP Nurse Practitioner Adult Health; Visit Provider Nurse Practitioner Adult Health
DX: E78.5 Hyperlipidemia, unspecified (principal); R53.83 Other fatigue; D64.9 Anemia, unspecified; E55.9 Vitamin D deficiency, unspecified
CPT/HCPCS: 36415; 80053; 80061; 82306; 82607; 84443; 85027

== ENCOUNTER 2025-02-07 09:00 | Outpatient (CLI) | payer MEDICARE, SELFPAY ==
--- OUTSIDE RECORDS SUMMARY | 2019-05-20 06:00 | XMS_ITS | Continuity of Care Document ---
Author Organization [facility] [place] [address] [facility] ut[address]allory Musa [address] [place] [id number] Phone Care Team Providers Care Machinist Class B Name Role Phone Sae Quinn MD Unavailable Unavailable Allergies, Adverse Reactions, Alerts Substance Reaction Status Criticality No Known Allergies Active No Inform ation Medications Medication Instructions Dosage Effective Dates (start - stop) Status Comments multivitamin capsule take 1 capsule by o ral route every day - Active Procedures Procedure Date Post-op Follow-up Visit No Charge Refraction After Cataract Laser Surgery Post-op Follow-up Visit No Charge Refraction After Cataract Laser Surgery Eye Exam & Treatment Office/outpatient Visit, Est No Charge Refraction Post-op Follow-up Visit Post-op Follow-up Visit Post-op Follow-up Visit Remove Cataract, Insert Lens IOLMaster-Professional No Charge Refraction Post-op Follow-up Visit Post-op Follow-up Visit Post-op Follow-up Visit Remove Cataract, Insert Lens IOLMaster-Professional No Charge Refraction IOLMaster-Technical No Charge GDX Retina No Charge Orbscan Eye Exam, New Patient Advance Directives Directive Yes / No Effective Date File Name No Information Encounters Encounter Description Practice Location Reason(s) For Visit Diagnoses Date Provider Providers Copied on Encounter [facility], [address] [place] [address] [address], [place], [place], [id number], tel:[phone] [place] Professional 1 month s/p YAG PC (chief complaint) Encounter for examination following surgery May-0 9 Kai Quevedo. [address], [place], [place], [id number], [place]. tel:[phone] Referring Provider: Kisha Prado OD, [facility] [address] [facility], [place], [address]. tel:[phone] [facility], [address] [place] [address] [address], [place], [place], [id number], tel:[phone] [place] po Yag PC OD / Yag PC OS (chief complaint) Encounter for examination following surgeryOther secondary cataract, left eye Apr-0 9 Kai Quevedo. [address], [place], [place], [address], [place]. tel:[phone] Referring Provider: Kisha Prado OD, [facility] [address] [facility], [place], [address]. tel:[phone] [facility], [address] [place] [address] [address], [place], [place], [id number], [place] tel:[phone] [place] Yag PC Eval (chief complaint) Presence of intraocular lensOther secondary cataract, right eyeOther secondary cataract, left eyePinguecul a, left eyeDermatoch alasis of both upper eyelids Sep-2 0 9 Kai Quevedo. [address], [place], [place], [id number], [place]. tel:[phone] Referring Provider: Kisha Prado OD, [facility] [address] [facility], [place], [address]. tel:[phone] [facility], [address], [place], [place], [id number], [place] [phone] SEC [place] MCCALL Professional No Information 9 Kai Quevedo. [address] [facility] [place], [id number], [place]. tel:[phone] Office/outpa tient Visit, Est [facility], [address], [place], [place], [address], [place] [phone] SEC [place] MCCALL Professional Complete Exam (chief complaint) Presence of intraocular lens 8 Cleary Linda. [address] [place], [address], [place]. tel:[phone] Referring Provider: Kisha Prado OD, [address], [address]. tel:[phone] [facility], [address], [place], [place], [address], [place] tel:[phone] SEC Alejandro MCCALL Professional 4 wk PC IOL po (chief complaint) Encounter for examination following surgery Apr-2 0-201 7 Cleary Linda. [address] [place], [address], [place]. tel:[phone] Referring Provider: Kisha Prado OD, [address], [address]. tel:[phone] [facility], [address], [place], [place], [address], [place] tel:[phone] SEC Alejandro MCCALL Professional 1 Wk PCIOL Post Op (chief complaint) Encounter for examination following surgery 0 8-201 7 Leah OD Mackenzie. [address] [facility] [place], [address], [place]. tel:[phone] Referring Provider: Kisha Prado OD, [address], [place], [address]. tel:[phone] [facility], [address], [place], [place], [id number], [place] tel:[phone] [place] Professional 1 day PO (chief complaint) Encounter for examination following surgery 0 7 Cleary Linda. [address] [place], [address], [place]. tel:[phone] Referring Provider: Kisha OD, [address], [address]. tel:[phone] [facility], [address], [place], [place], [address], [place] tel:[phone] [facility] No Information 3 7 Cleary Linda. [address] [place], [address], [place]. tel:[phone] Referring Provider: Kisha Prado OD, [address], [place], [address]. tel:[phone] [facility], [address], [place], [place], [address], [place] tel:[phone] SEC [place] Remy No Information 3 7 Cleary Linda. [address] [place], [address], [place]. tel:[phone] Referring Provider: Kisha OD, [address], [address]. tel:[phone] [facility], [address], [place], [place], [address], [place] tel:[phone] [place] Professional 3 wk CE PO (chief complaint) No Information Mar-2 7 Cleary Linda. [address] [place], [place], [facility], . tel:[phone] Referring Provider: Kisha Prado OD, [facility] [address], [address]. tel:[phone] [facility], [address], [place], [place], [address], tel:[phone] [place] Professional 1 Wk PCIOL F/U (chief complaint) No Information Oct-1 1-201 7 Cleary Linda. [address] [place], [place], [facility], . tel:[phone] Referring Provider: Kisha Prado OD, [address], [address]. tel:[phone] [facility], [address], [place], [place], [address], [place] tel:[phone] [place] Professional 1 Day PCIOL PO (chief complaint) No Information Oct-0 4-201 7 Cleary Linda. [address] [place], [facility], [place]. tel:[phone] Referring Provider: Kisha Prado OD, [address], [place], [address]. tel:[phone] [facility], [address], [place], [place], [address], [place] tel:[phone] [facility] No Information Oct-0 3-201 7 Cleary Linda. [address] [place], [facility], [place]. tel:[phone] Referring Provider: Kisha Prado OD, [facility] [address] [place] [address], [address]. tel:[phone] [facility], [address] [facility] [address] [address], [place], [place], [id number], tel:[phone] SEC [place] No Information Cleary Linda. [address] [place], [address], . tel:[phone] Referring Provider: Kisha Prado OD, [address], [address]. tel:[phone] [facility], [address] [facility] [address] [address], [place], [place], [address], tel:[phone] SEC Alej[place] MCCALL Professional Cataract evaluation (chief complaint) No Information Cleary Linda. [address] [place], [address], . tel:[phone] Referring Provider: Kisha Prado OD, [address], [address]. tel:[phone] Family History Family Member Type Diagnosis Age At Onset Maternal grandmother Problem (finding) glaucoma Payers Payer name Insurance type Covered republican ID Authoriza tion(s) No Information Social History Type Description Quantity Date Captured Comments Alcohol Use Details wine 2 glasses monthly 19 Caffeine Use Details No Tobacco Use Status Ex-cigarette smoker 019 Smoking Status Former smoker Smoking Tobacco Use Details Cigarette: Age Started: 16, Age Stopped: 40, Years Used 24 Cigarette: No Details Available Sex Female Chief Complaint And Reason For Visit From encounter dated '2019 11:00'. 1 month s/p YAG PC (chief complaint). Description: The 69 year old female presents for evaluation of 1 month s/p YAG PC in the left eye. Patient states [place] is [place]. Patient already had glasses changes by OD. Reason For Referral Reason For Referral No Information Plan Of Treatment Date Type Action Status Patient Education Learning About YAG Lase r Capsulotomy completed Patient Education Learning About YAG Lase r Capsulotomy completed History Of Present Illness Encounter Date Complaint History Of Prese nt Illness 1 month s/p YAG PC The 69 year o ld female presents for evaluation of 1 month s/p YAG PC in the left eye. Patient states [place] is great. Patient already had glasses changes by OD. po Yag PC OD / Yag PC OS The 68 year old female presents for evaluation of po Yag PC OD (03/04/19)/ Yag PC OS. Pt reports floaters and flashes OD since Yag PC OD and an occasional film OD that goes away when she rubs her eye. Pt reports trouble driving at night, glare from oncoming headlights at night. Pt reports having trouble seeing road signs, and reading small print like newspapers, books and medicine bottles x 1 year OS. Yag PC Eval The 68 year old female presents for evaluation of Yag PC Eval in the right eye and left eye. Referred by Dr. Prado, OD. Hx PC IOL OU. Pt reports blurred vision at far with and without glasses for about 6 months. Pt reports glare while driving at night. Pt avoids driving at night because of her vision. Pt has trouble seeing street signs and watching Tv because of her vision. Complete Exam The 67 year old female presents for a complete IOL check ou. Patient denies any changes in vision ou. Patient had gastric sleeve sx in and has lost 60 lbs and is off all medication. 4 wk PC IOL po The 66 year old female presents for 4 wk PC IOL po in the left eye. Pt using Pred OS qd starting today. Pt stated vision is very good. Pt denies pain or discomfort. 1 Wk PCIOL Post Op The 66 year o ld female presents for 1 Wk PCIOL Post Op in the left eye. Hx PCIOL OD. Pt states vision is doing good. Pt currently using Pred TID OS. Pt denies any pain or discomfort and has no visual concerns at this time. 1 day PO The 66 year old female presents for 1 day PCIOL PO in the left eye. Pt states her vision is doing pretty good. PT states OS is a little itchy in the temporal corner. PT using Pred and Ofloxacin QID OS. PT ogiven and understands PO instructions. 3 wk CE PO The 66 year old female presents for 3 wk CE PO in the right eye. Pt reports she is using Pred QD OD. Pt reports VA is much better since CE, OD. Pt reports she is still bothered by oncoming headlights at night, OS, x few mos now. Pt reports she also has problems with small print up close, OS, x few mos, even when she is wearing her glasses. Pt reports no pain, irritation or discomfort today, OU. 1 Wk PCIOL F/U The 66 year old female presents for 1 Wk PCIOL F/U in the right eye. Hx Cataract OS, PCIOL OD. Pt states vision is kind of crazy after prcedure due to wearing glasses, however vision OD seems to be pretty good. Pt currently using Pred QID OD. Pt denies any pain of discomfort at this time, and has no current concerns. 1 Day PCIOL PO The 66 year old female presents for 1 Day PCIOL PO in the right eye. Cataract OS. Pt using Pred and Ofloxacin QID OD. Pt states her vision is doing pretty good after Cat SX. Cataract evaluation The 66 year old female presents for Cataract evaluation in the right eye and left eye. Pt has history of cataracts OU. Pt denies history of ocular surgeries, diseases or trauma. Pt does not have Diabetes. Pt reports problems with near and distance vision with glasses ongoing x 1 year. Pt states she also has problems with glare and does not drive at night. Pt states she purchased new glasses in June. Pt does not use eye drops at this time. Functional Status Date Functional Assessmen t No Information Instructions Date Instruction Additional Infor quoc Impression/Plan Impression/Plan Impression/Plan Impression/Plan Follow up - Return i n 6 months with Linda Cleary M.D. for Complete Exam. Impression/Plan - PO M 1 s/p CE/PCIOL OS. Doing well. Continue post op drops as instructed. RTC 6 mths for CEE. Recommend OTC readers for near. RTC as scheduled, sooner if any problems Related to Encounter for examination following surgery Follow up - RTC as s cheduled, sooner if any problems Related to Encounter for examination following surgery Impression/Plan - 1 Week PO s/p phaco with PCIOL OS- PCIOL in good position- Patient healing well- Vision and IOP stable today- Shield at night no longer needed- Post-op drops and instructions reviewed and understood by patient- RTC as scheduled, sooner if any problems Related to Encounter for examination following surgery Encounter for examin ation following surgery - Post op instructions reviewed and understood by patient Related to Encounter for examination following surgery Encounter for examin ation following surgery - Medication use reviewed Related to Encounter for examination following surgery Follow up - as scheduled Impression/Plan - PO D 1 s/p CE/PCIOL OS- IOL in good position- Doing well- IOP well controlled- Post op med instructions reviewed with pt, and post op instructions discussed- Discussed warning signs and symptoms and need for immediate exam should these occur. Pt understands shield use, return to clinic for post op exam as scheduled. Proceed with CE OS Related to En counter for examination following surgery Follow up - Proceed with CE OS R elated to Encounter for examination following surgery Impression/Plan - PO M 1 s/p CE/PCIOL OD- Doing well- Continue post op drops as instructed- Proceed with CE OS as scheduled Related to Encounter for examination following surgery Impression/Plan - On e week post-op s/p CE/PCIOL OD in good position; healing well; IOP well controlled. Activities restrictions reviewed. Medication instillation and post op instructions reviewed. Patient will return in 2 weeks or sooner with problems. Follow up - as scheduled Follow up - as scheduled Impression/Plan - PO D 1 s/p CE/PCIOL ODDoing well. IOP well controlled. Post op med instructions reviewed with pt, and post op instructions discussed. Discussed warning signs and symptoms and need for immediate exam should these occur. Pt understands shield use, return to clinic for post op exam as scheduled. Discussed dermatochalasis OU and possible surgery, will consider treatment in the future. Impression/Plan - Ca taract presence and progression discussed. Cataracts account for the patients complaints. Discussed all risks, benefits, procedures and recovery. Vision will not significantly improve with a change in glasses and we recommend not changing. The patient understands this is an elective procedure and may proceed when desired. The patients questions were answered and demonstrates understanding of our discussion. Patient desires to have surgery, recommend phacoemulsification with intraocular lens. Discussed astigmatism with pt. - Visually significant OU- Will plan on OD first, followed by OS- Dilates 5.5 mm OD and 5 mm OS- No trauma or prior surgery - Ibuprofen daily, no other blood thinners- No Flomax - History of HTN with fluctuating BPs, RLS without medication, pt reports shortness of breath walking but not when laying flat on back- Able to lay flat for 60 minutes with leg positioning for RLS- Special considerations for cataract surgery: Topical, consider Trypan, SC and possible ring- Special considerations for lens: Standard monofocal IOL OU.Pt has not seen her PCP in the last 6 mths. Discussed that she will likely need to see her PCP for clearance. Surgery schedulers will call to schedule surgery. Related to Combined forms of age-related cataract, bilateral Assessments Type Assessment Date assessment Encounter for examination follow ing surgery Patient Care Teams Name Effective Dates (start - stop) Status Members No Information
--- OUTSIDE RECORDS SUMMARY | 2025-02-07 09:13 | XMS_ITS | Clinical Summary ---
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 Gender Identity Not on file Sexual Orientation [...] 10:46 AM CDT Height 167.6 cm (5' 6) 12/22/2022 10:46 AM CDT Body Mass Index 31.96 12/22/2022 10:46 AM CDT Plan of Treatment Health Maintenance Due Date Last Done Comments Depression Screening 1950 Hepatitis C Screening 1950 DTaP/Tdap/Td Vaccine (1 - Tdap) 1961 Hepatitis B Screening 1968 Zoster Vaccine (1 of 2) 2000 Well Visit 65+ 2015 Pneumococcal vaccine 65+ (2 of 2 - PCV20 or PCV21) 07/25/2017 07/25/2016 Osteoporosis Screening-Bone Density Scan 01/26/2019 01/26/2017 Breast Cancer Screening-Mammogram 01/27/2019 01/27/2018, 01/26/2017, 02/02/2015 Fall Risk Assessment 12/23/2023 12/22/2022 Covid-19 Vaccine (3 - 2023-2 5 season) 2024 06/22/2021, 09/20/2020 Influenza Vaccine (#1) 2025 9, 06/04/2017, 07/25/2016 Colon Cancer Screening-Colonoscopy 12/22/20322022 [...] Attending MD: Mark Anthony Motta M.D. Room: [facility] ENDOSCOPY ROOM 3 Note Status: Finalized Patient [...] procedure were verified by the physician, the emergency management consultant and the sales and service technician in the endoscopy suite. Mental Status [...] scope was passed under direct vision. TheColonoscope [id number] was introduced through the anus and advanced [...] 10:31 AM Procedure Code(s): --- Professional --- 80340, Colonoscopy, flexible; diagnostic, including collection of specimen(s) by brushing or washing, when performed (separateprocedure) --- Technical --- 94158, Colonoscopy, flexible; diagnostic, including collection of specimen(s) by brushing or washing, when performed (separateprocedure) Diagnosis Code(s): --- Professional --- K64.8, Other hemorrhoids K64.4, Residual hemorrhoidal skin tags --- Technical --- K64.8, Other hemorrhoids K64.4, Residual hemorrhoidal skin tags CPT copyright 2020 [employer]. All rights reserved. The codes documented in this report are preliminary and upon manager psychology reviewmay be revised to meet current compliance requirements. Recognized by the [employer] for promoting quality [...] PM CDT DEXA Bone Density Axial Acc#: [id number] DATE OF EXAM: Jan 26 2017 EXAM: [...] neck and 1.2 total; normal. X09 COMMENT: WImaniHImaniO. defines the T-score of between -1 and [...] on: Jan 26 2017 1:52P Transcribed by: [facility] On: Jan 26 2017 1:50P Approved Electronically by: NANCI Bhatia, DR PANCHAL on: Jan 26 2017 1:50P Ordering DR: FIDEL PORTILLO Attending DR: FIDEL PORTILLO Attending: FIDEL PORTILLO Requesting: FIDEL PORTILLO Requesting Attending Attending ID: [id number] Requesting ID: [id number] Report To 1 ID: [id number] Report To 1 Name: FIDEL PORTILLO Report To 1 FAX: [phone] NextGen Order #: Procedure Note Miscellaneous, Not In File / Provider, MD Benjamin - 01/26/2017 DEXA Bone Density Axial Acc#: [id number] DATE OF EXAM: Jan 26 2017 EXAM: [...] on: Jan 26 2017 1:52P Transcribed by: [facility] On: Jan 26 2017 1:50P Approved Electronically by: NANCI Bhatia, DR PANCHAL on: Jan 26 2017 1:50P Ordering DR: FIDEL PORTILLO Attending DR: FIDEL PORTILLO Attending: FIDEL PORTILLO Requesting: FIDEL PORTILLO Requesting Attending Attending ID: [id number] Requesting ID: [id number] Report To 1 ID: [id number] Report To 1 Name: FIDEL PORTILLO Report To 1 FAX: [phone] NextGen Order #: Fidel Portillo MD IMG DXA PROCEDURES Final Resu lt from Last 3 Months or Most Recently Relevant to Health Maintenance Insurance MEDICARE [facility] MEDICARE [facility] Address: [address] [address] [place] [address] [facility] Advance Directives For more information, please contact: [phone] * Full Code (Latest Code Status on File) Date Activated Date Inactivated Comments 12/22/2022 10:40 AM 12/22/2022 6:33 PM * Full Code Date Activated Date Inactivated Comments 12/22/2022 10:40 AM 12/22/2022 10:40 AM Care Teams Field Account Director Relationship Specialty Start Date End Date Kelly Gonzales MD [facility] [place], [place] [id number] PCP - General Family Medicine 09/08/22
--- OUTSIDE RECORDS SUMMARY | 2025-02-07 09:13 | XMS_ITS | Clinical Summary ---
Author Organization [facility] Address [address] [address] Phone Care Team Providers Care Refractory Grinder Operator Name Role Phone Fidel Portillo MD Primary Care Provider [phone] Medications polyethylene glycol (MIRALAX) Powder Use entire [...] Health Maintenance Due Date Last Done Comments Hepatitis C Virus (HCV) Screening 1950 TdaP Immunization 1950 Cologuard 1995 Colonoscopy 1995 Colorectal Cancer Screening 1995 Immunochemical Fecal Occult Blood 1995 Pneumococcal Immunization (5 0+ years) (1 of 1 - PCV) 2000 Zoster Immunization (1 of 2) 2000 SARS-COV-2 Immunization ( - 2023-25 season) 2024 Influenza Immunization (#1) 2025 Respiratory Syncytial Virus (RSV) Immunization (Adult) (1 - 1-dose 75+ series) 2025 Hepatitis B Immunization Aged Out No longer eligible based on patient's age to complete this topic Human Papillomavirus (HPV) Immunization Aged Out No longer eligible b ased on patient's age to complete this topic Meningococcal Immunization (ACWY) Aged Out No longer eligible based on patient's age to complete this topic Rotavirus Immunization Aged Out No lo nger eligible based on patient's age to complete this topic Insurance [facility] MEDICARE Care Teams Refractory Grinder Operator Relationship Specialty Start Date End Date Fidel Portillo MD [address] [place] [address] [address] [place] [address] PCP - General Family Medicine 07/02/16
[2025-02-07 19:02] LABS: Hematocrit 46.1 % (37.0-47.0); Hemoglobin 14.0 g/dL (12.0-15.0); Mean Corpuscular HGB Conc 30.4 g/dl (32-36); Mean Corpuscular Hemoglobin 26.8 pg (26-34); Mean Corpuscular Volume 88.3 fl (80-100); Platelet Count Result 351 k/mm3 (150-375); Red Blood Count 5.22 M/mm3 (4.2-5.4); White Blood Count 7.2 K/mm3 (4.5-10.0)
[2025-02-07 19:11] LABS: Alanine Aminotransferase 15 U/L (6-35); Albumin Level 4.0 g/dL (3.5-5.1); Alkaline Phosphatase 96 U/L (38-126); Anion Gap 8 mmol/L (4-12); Aspartate Amino Transferase 39 U/L (14-36); Bilirubin,Total 0.6 mg/dL (0.2-1.3); Blood Urea Nitrogen 24 mg/dL (7-17); Calcium 9.2 mg/dL (8.4-10.2); Carbon Dioxide 25 mmol/L (22-30); Chloride 106 mmol/L (98-107); Cholesterol 235 mg/dL (0-200); Estimated Glomerular Filt Rate > 60; Glucose 93 mg/dL (65-110); HDL Direct 52 mg/dL; Potassium 4.3 mmol/L (3.4-5.0); Sodium 139 mmol/L (137-145); Total Protein 7.6 g/dL (6.3-8.2); Triglycerides 150 mg/dL (<150)
[2025-02-07 19:20] LABS: Iron 59 ug/dL (37-170)
[2025-02-07 19:34] LABS: Percent Iron Saturation 15 % (20-50)
[2025-02-07 19:43] LABS: Thyroid Stimulating Hormone 3.370 uIU/mL (0.465-4.680)
[2025-02-07 19:56] LABS: Ferritin 17.50 ng/mL (11.1-264)
[2025-02-07 20:43] LABS: Free T4 Free Thyroxine 1.34 ng/dL (0.78-2.19)
== END 2025-02-07 09:01 | disposition home or self-care (01) ==
LOC: ANHBWCLAB 09:00
PROVIDERS: PCP Nurse Practitioner Adult Health; Visit Provider Nurse Practitioner Adult Health
DX: E78.5 Hyperlipidemia, unspecified (principal); E55.9 Vitamin D deficiency, unspecified; D64.9 Anemia, unspecified; R68.89 Other general symptoms and signs
CPT/HCPCS: 36415; 80053; 80061; 82306; 82728; 83540; 83550; 84439; 84443; 85027